=== PATIENT | female | born 1975 | race Caucasian/White ===

== ENCOUNTER 2024-02-19 14:50 | Emergency (ER) | payer OTHER ==
[~2024-02-19] VITALS: Ht 147.3 cm; Wt 68.0 kg
[2024-02-19] MEDS ORDERED: ACETAMINOPHEN 325 MG TAB PO ONE (15:15)
[2024-02-19] MEDS ORDERED: CYCLOBENZAPRINE5 M3 PO (17:07)
[2024-02-19] MEDS ORDERED: PREDNISONE50 MG PO (17:44)
[2024-02-19] MEDS ORDERED: Dexamethasone Sodium Phospha 20 MG/5 ML VIAL IM ONE (17:45)
== END 2024-02-19 17:12 | disposition home or self-care (01) ==
LOC: ED 14:50
DX: M62.830 Muscle spasm of back (principal); M25.552 Pain in left hip